=== PATIENT | female | born 1935 | race Caucasian/White ===

== ENCOUNTER 2016-10-05 08:56 | Inpatient (IN) | payer OTHER ==
[~2016-10-05] VITALS: Ht 152.4 cm; Wt 59.4 kg
[2016-10-05 10:05] LABS: BASOPHIL % 0.3 % (0-2); PLATELET COUNT 380 x10^3mcL (130-400)
[2016-10-05 10:40] LABS: CALCIUM 9.1 mg/dL (8.5-10.1); CARBON DIOXIDE 29.7 mmol/L (21-32); CHLORIDE SERUM 102 mmol/L (98-107); CREATININE SERUM 0.8 mg/dL (0.6-1.0); GLUCOSE SERUM 107 mg/dL (74-106); POTASSIUM SERUM 3.6 mmol/L (3.5-5.1); SODIUM SERUM 138 mmol/L (136-145)
[2016-10-05 10:41] LABS: CK-MB < 0.5 ng/mL (0-3.6); CREATINE KINASE 67 U/L (26-192); FREE T4 1.05 ng/dL (0.76-1.46); FREE THYROXINE INDEX 2.7 ug/dL (1.4-4.5); T4(THYROXINE) 7.9 ug/dL (4.7-13.3)
[2016-10-05 10:42] LABS: T3 TOTAL 1.05 ng/mL
[2016-10-05 10:46] LABS: microscopic required? YES; urine erythrocyte TRACE (NEGATIVE)
[2016-10-05 10:52] LABS: ALBUMIN 3.6 g/dL (3.4-5.0); ALKALINE PHOSPHATASE 103 U/L (46-116); ALT/SGPT 6 U/L (14-59); AST/SGOT 21 U/L (15-37); BILIRUBIN TOTAL 0.61 mg/dL (0.20-1.00); C REACTIVE PROTEIN 3.8 mg/dL (<=0.9); TOTAL PROTEIN, SERUM 7.9 g/dL (6.4-8.2)
[2016-10-05] MEDS ORDERED: ZYPREXA5 M1 PO (11:02)
[2016-10-05] MEDS ORDERED: NOR5 PO (11:03)
[2016-10-05] MEDS ORDERED: XANAX0.25 MG PO (11:03)
[2016-10-05] MEDS ORDERED: COLACE100 MG PO (11:04)
[2016-10-05 11:45] LABS: ERYTHROCYTE SED RATE 63 mm/hr (0-30)
[2016-10-05 21:36] VITALS: BP 161/82
[2016-10-06 06:03] VITALS: BP 139/50
[2016-10-06 07:32] LABS: BASOPHIL % 0.1 % (0-2); PLATELET COUNT 351 x10^3mcL (130-400); RED CELL DISTRIBUTION WIDTH 13.9 % (11.5-14.5)
[2016-10-06 07:46] LABS: CALCIUM 8.2 mg/dL (8.5-10.1); CARBON DIOXIDE 25.4 mmol/L (21-32); CHLORIDE SERUM 104 mmol/L (98-107); CREATININE SERUM 0.7 mg/dL (0.6-1.0); GLUCOSE SERUM 105 mg/dL (74-106); POTASSIUM SERUM 3.3 mmol/L (3.5-5.1); SODIUM SERUM 138 mmol/L (136-145)
[2016-10-06 07:57] LABS: PHOSPHOROUS 3.6 mg/dL (2.5-4.9)
[2016-10-06 13:49] VITALS: BP 111/45
[2016-10-06 14:59] VITALS: Ht 152.4 cm; Wt 59.4 kg
[2016-10-06 17:25] VITALS: BP 132/60
[2016-10-06 20:36] VITALS: BP 119/55
[2016-10-07 05:53] VITALS: BP 137/70
[2016-10-07 08:40] LABS: BASOPHIL % 0.2 % (0-2); PLATELET COUNT 387 x10^3mcL (130-400); RED CELL DISTRIBUTION WIDTH 13.6 % (11.5-14.5)
[2016-10-07 08:46] LABS: CALCIUM 8.5 mg/dL (8.5-10.1); CHLORIDE SERUM 105 mmol/L (98-107); CREATININE SERUM 0.7 mg/dL (0.6-1.0); GLUCOSE SERUM 93 mg/dL (74-106); PHOSPHOROUS 2.9 mg/dL (2.5-4.9); POTASSIUM SERUM 3.8 mmol/L (3.5-5.1); SODIUM SERUM 139 mmol/L (136-145)
[2016-10-07 09:57] VITALS: BP 139/61
[2016-10-07 17:47] VITALS: BP 147/64
[2016-10-07 21:17] VITALS: BP 121/61
[2016-10-08 06:18] LABS: BASOPHIL % 0.6 % (0-2); RED CELL DISTRIBUTION WIDTH 13.7 % (11.5-14.5)
[2016-10-08 06:26] VITALS: BP 146/68
[2016-10-08 06:47] LABS: PLATELET COUNT 403 x10^3mcL (130-400)
[2016-10-08 07:00] LABS: CARBON DIOXIDE 24.1 mmol/L (21-32); CHLORIDE SERUM 103 mmol/L (98-107); CREATININE SERUM 0.6 mg/dL (0.6-1.0); GLUCOSE SERUM 98 mg/dL (74-106); MAGNESIUM 2.2 mg/dL (1.8-2.4); PHOSPHOROUS 2.5 mg/dL (2.5-4.9); POTASSIUM SERUM 3.4 mmol/L (3.5-5.1); SODIUM SERUM 140 mmol/L (136-145)
[2016-10-08 08:45] VITALS: BP 158/72
[2016-10-08 22:00] VITALS: BP 121/53
[2016-10-09 05:54] VITALS: BP 147/68
[2016-10-09 07:06] LABS: CALCIUM 8.7 mg/dL (8.5-10.1); CARBON DIOXIDE 25.8 mmol/L (21-32); CHLORIDE SERUM 105 mmol/L (98-107); CREATININE SERUM 0.6 mg/dL (0.6-1.0); GLUCOSE SERUM 95 mg/dL (74-106); POTASSIUM SERUM 3.4 mmol/L (3.5-5.1); SODIUM SERUM 141 mmol/L (136-145)
[2016-10-09 07:07] LABS: BASOPHIL % 0.3 % (0-2); PLATELET COUNT 394 x10^3mcL (130-400); RED CELL DISTRIBUTION WIDTH 13.8 % (11.5-14.5)
[2016-10-09 07:44] VITALS: BP 133/67
[2016-10-09 09:14] VITALS: BP 133/52
[2016-10-09] MEDS ORDERED: CLEOCIN PH600 MG/4 M IV (16:54)
[2016-10-09 17:31] VITALS: BP 133/54
[2016-10-09 18:08] VITALS: BP 133/54
== END 2016-10-09 19:18 | DRG 602 ==
LOC: ED 08:56 → DU 12:29 → MU 12:29 → DU 21:10 → MU 10-07 11:58
PROVIDERS: Specialist; ADMIT Family Medicine
DX: L03.116 Cellulitis of left lower limb (principal); N17.0 Acute kidney failure with tubular necrosis; G93.41 Metabolic encephalopathy; G30.9 Alzheimer's disease, unspecified; F02.80 Dementia in other diseases classified elsewhere, unspecified severity, without behavioral disturbance, psychotic disturbance, mood disturbance, and anxiety; N31.9 Neuromuscular dysfunction of bladder, unspecified; E87.6 Hypokalemia; I10 Essential (primary) hypertension; Z68.24 Body mass index [BMI] 24.0-24.9, adult; Z66 Do not resuscitate; Z51.5 Encounter for palliative care
CPT/HCPCS: 36600; 83880; 84439; 97110-GP; 97116-GP; 97530-GP; J0696; J2060; J3490; J7030; Q0092

== ENCOUNTER 2019-03-31 08:08 | Inpatient (IN) | payer OTHER ==
[~2019-03-31] VITALS: Ht 152.4 cm; Wt 68.0 kg
[~2019-03-31 08:08] MED LIST: CLEOCIN PH600 MG/4 M IV; COLACE100 MG PO; NOR5 PO; XANAX0.25 MG PO; ZYPREXA5 M1 PO
--- NOTE | 2019-03-31 08:13 | NUR ---
MSE COMPLETED BY DR UMANA. PT JUAN CARLOS FROM [place] FOR POSS SEIZURE TONIC CLONIC LIKE ACTIVITY ON THE COUCH. PER MEDIC STAFF STATED PT APPEARS TO BE MORE ALTERED THAN USUAL. PT IS NORMALLY NONVERBAL AND HAS A ALTE STAGE HX OF DEMENTIA
[2019-03-31 08:28] VITALS: Ht 152.4 cm; Wt 68.0 kg
--- NOTE | 2019-03-31 08:30 | NUR ---
RT AT BEDSIDE. LAB AT BEDSIDE
[2019-03-31 09:04] LABS: BASOPHIL % 0.2 % (0-2); PLATELET COUNT 375 x10^3mcL (130-400)
[2019-03-31 09:05] LABS: RED CELL DISTRIBUTION WIDTH 15.6 % (11.5-14.5)
--- NOTE | 2019-03-31 09:06 | NUR ---
PT RETURNED FROM RADIOLOGY. PLACED BACK ON FULL MONITORS. DR UMANA AWARE OF LOW TEMP. INSTRUCTED TO PLACE RECTAL BEAR HUGGER PROBE INSIDE TO CHECK TEMPERATURE TO ASCERTAIN LOW TEMP. PROBE PLACED INSIDE.
[2019-03-31 09:21] LABS: UA SPECIFIC GRAVITY 1.015 (1.005-1.035); microscopic required? YES; urine erythrocyte NEGATIVE (NEGATIVE)
--- NOTE | 2019-03-31 09:30 | NUR ---
PLACED ON BEAR HUGGER FOR LOW TEMP. RECTAL PROBE THERMOMETER READING 91.9. F. DR UMANA AWARE.
[2019-03-31 09:44] LABS: T3 TOTAL 1.26 ng/mL
[2019-03-31 09:49] LABS: CALCIUM 9.4 mg/dL (8.5-10.1); CHLORIDE SERUM 112 mmol/L (98-107); CREATININE SERUM 0.8 mg/dL (0.6-1.0); GLUCOSE SERUM 128 mg/dL (74-106); POTASSIUM SERUM 3.9 mmol/L (3.5-5.1); SODIUM SERUM 149 mmol/L (136-145)
[2019-03-31 10:03] LABS: ALKALINE PHOSPHATASE 130 U/L (46-116); ALT/SGPT 38 U/L (14-59); AST/SGOT 34 U/L (15-37); TOTAL PROTEIN, SERUM 8.1 g/dL (6.4-8.2)
[2019-03-31 10:04] LABS: ALBUMIN 3.1 g/dL (3.4-5.0)
[2019-03-31 10:10] LABS: FREE T4 1.27 ng/dL (0.76-1.46); FREE THYROXINE INDEX 3.8 ug/dL (1.4-4.5); T4(THYROXINE) 10.6 ug/dL (4.7-13.3)
[2019-03-31 10:11] LABS: C REACTIVE PROTEIN 4.3 mg/dL (<=0.9)
[2019-03-31 10:19] LABS: CK-MB 3.2 ng/mL (0-3.6)
--- NOTE | 2019-03-31 10:35 | NUR ---
RETURNED FROM CT SCAN FOR CT ANGIO TEST. PLACED BACK ON BLANKET WARMER. PT TEMP 92.2 FAHRENHEIT AT THIS TIME
--- NOTE | 2019-03-31 11:09 | NUR ---
DR UMANA AT BEDSIDE FOR RE EVAL
[2019-03-31 11:52] LABS: ERYTHROCYTE SED RATE 50 mm/hr (0-30)
--- NOTE | 2019-03-31 12:02 | NUR ---
INFUSING THE 150ML NS PER HOUR WIDE OPEN D/T LOW BP PER DR LYNDSAY ORTIZ.
--- NOTE | 2019-03-31 12:12 | NUR ---
HOLD PT IN ED AT THIS TIME FOR POWER OF PROCESSOR GRAIN TO ARRIVA. PER AREA INTELLIGENCE TECHNICIAN LEI FROM [facility], THE POWER OF PROCESSOR GRAIN WILL BE HERE
--- NOTE | 2019-03-31 13:14 | NUR ---
DR UMANA SPEAKING TO HOSPICE REP IMMANUEL REGARDING PT ADMISSION AND STATUS. PER REP, FAMILY WANTS PT BACK IN HOSPICE.
--- NOTE | 2019-03-31 13:33 | NUR ---
CALLED FOR REPORT EXT [phone]- NO ANSWER.
--- NOTE | 2019-03-31 13:48 | NUR ---
REPORT GIVEN TAYA
[2019-03-31 14:46] VITALS: BP 111/76
--- NOTE | 2019-03-31 15:05 | NUR ---
RECEIVED PT FROM ER, PT IS EYE OPEN BUT NON VERBAL, ONLY RESPONSIVE TO PAIN. LUNG SOUND RHONCHI ADAM. CONSTANTLY MAKE GASPING SOUND WHILE BREATHING. PT IS ON 2L/MIN O2 VIA NC. PO2 96%, PT IS ON TELE 27, FIRST DEGREE AV BLOCK, NO S/S OF CHEST PAIN, BOWEL SOUND PRESENT ALL 4 QUADRANTS, NO DISTENTION, NO TENDER. PEDAL PULSE PRESENT BOTH FEET, +1 EDEMA BLE. IV AT LEFT HAND, LEFT AC, AND RIGHT FA, DRESSING INTACT. AT 1430 PT HAD 30 SECOND TONIC-CLONIC SEIZURE, ATIVAN IVP WAS GIVEN. PT IS FALLING TO SLEEP AFTER SEIZURE. PT IS ON BEAR HUG MACHINE FOR TEMPTURE CONTROL. AIR MATTRESS IS IN PLACE. ALL ADLS ASSIST, ALL NEED MET, CALL LIGHT IN REACH, WILL CONTINUE TO MONITOR.
--- NOTE | 2019-03-31 15:26 | NUR ---
PATIENT HAD A 30 SECOND SEIZURE. ATIVAN 0.5 MG IVP WAS GIVEN AT 1435. AT 1505 SHE STILL HASNT HAD ANY MORE SEIZURES, SHE IS SLEEPING WITHOUT DIFFICULTY BREATHING. O2 100% NON REBREATHER MASK. IV SITE LEFT HAND AND LAC PATENT,CDI. NEW IV SITE TO RFA 22 DANIEL.
--- NOTE | 2019-03-31 15:34 | NUR ---
SEIZURE PRECAUTIONS, BED WAS PADDED BEFORE ARRIVAL FROM ED. JESUSITA BAUERGGDREW WITH RECTAL PROBE IS IN PATIENT, HER RECTAL TEMP IS NOW 96.2. SHE DIVINE 100% NRB MASK.
--- NOTE | 2019-03-31 16:41 | NUR ---
BP 85/28, HR 80. I NOTIFIED [facility] SKIN CARE INSTRUCTOR, SHE ORDERED 500 ML NS BOLUS TO BE GIVEN.
--- NOTE | 2019-03-31 17:55 | NUR ---
NON VERBAL, TRACKS OCCASIONALLY WITH EYES. DOES NOT FOLLOW COMMANDS. NON VERBAL. IV SITE LEFT HAND PATENT,CDI. WITH BEAR HUGGER BLANKET AND RECTAL TEMP PROBE, TEMP 98.5 NOW. NO SIGNS OF DISCOMFORT. NO FAMILY HAS CALLED OR VISITED. TELE # 4 SR WITH BBB.
--- NOTE | 2019-03-31 18:25 | NUR ---
BOLUS OF 500 CC NS WAS GIVEN AT 1630 FOR A BP OF 85/28, COMPLETED AT 1825. BP IS NOW 94/29, HR 77.
[2019-03-31 18:26] VITALS: BP 94/29
--- NOTE | 2019-03-31 20:00 | NUR ---
PT A/A/O X4, AT BEDSIDE. PT DENIES DIZZINESS AND HEADACHE. BREATH SOUNDS CLEAR. BREATHING EVEN AND UNLABORED. DENIES CHEST PAIN AND PRESSURE. BOWEL SOUNDS ACTIVE. ABDOMEN DISTENDED AND SOFT. NO C/O N/V AND ABD PAIN. BAND AID ON THE ABDOMEN NOTED INTACT. PITTING EDEMA NOTED ON BLE EXTENDING TO THE PENILE AREA. SKIN TEAR WITH DRESSING ON THE LEFT FOREARM C/D/I. IV INTACT ON THE RIGHT HAND AND RIGHT FOREARM. MADE PT COMFORTABLE. PLACED CALL LIGHT WITH IN REACH. WILL CONTINUE TO MONITOR.
--- NOTE | 2019-03-31 20:00 | NUR ---
PT WITH EYES OPEN. REPONDS TO PAIN STIMULI. BREATH SOUNDS CLEAR. BREATHING EVEN AND UNLABORED ON 5L NC, SPO2 97%. BOWEL SOUNDS ACTIVE. RASH NOTED ON THE UNDERSIDE OF THE BREAST KIMBERLY. TRACE EDEMA NOTED ON BLE. IV INTACT ON THE LEFT HAND INFUSING WITH NS AT 70 ML/HR. IV SALINE LOCK NOTED ON RIGHT FORE ARM. MADE PT COMFORTABLE. PLACED CALL LIGHT WITH IN REACH. SEIZURE PRECAUTION OBSERVED. PT ON AIR MATTRESS. PT ON BEAR HUGGER WITH TEMPORAL TEMPERATURE OF 98.8. WILL CONTINUE TO MONITOR.
[2019-03-31 21:02] VITALS: BP 122/61
--- NOTE | 2019-04-01 00:54 | NUR ---
PT RESTING WITH EYES CLOSED. NO DISTRESS AND DISCOMFORT NOTED. WILL CONTINUE TO MONITOR.
[2019-04-01 05:44] VITALS: BP 100/28
[2019-04-01 06:28] LABS: PLATELET COUNT 348 x10^3mcL (130-400)
--- NOTE | 2019-04-01 06:30 | NUR ---
PT QUIET AND RESTING. NO SIGNIFICANT CHANGES NOTED. IV INTACT AND INFUSING ORDERED. MADE PT COMFORTABLE. WILL ENDORSE TO THE AM NURSE ACCORDINGLY.
[2019-04-01 07:10] LABS: CALCIUM 8.6 mg/dL (8.5-10.1); CHLORIDE SERUM 113 mmol/L (98-107); GLUCOSE SERUM 73 mg/dL (74-106); SODIUM SERUM 148 mmol/L (136-145)
--- NOTE | 2019-04-01 07:15 | NUR ---
RECEIVED PT FROM NIGHT NURSE. PT IS LAYING DOWN IN BED WITH HOB UP AND EYES CLOSED. PT IS RESPONSIVE TO PAINFUL STIMULI AND DOES NOT FOLLOW COMMANDS. RESPIRATIONS EVEN AND UNLABORED ON 5L NC. TELE MONITOR PRESENT. IV SITE PATENT WITH NO SIGNS OF ERYTHEMA OR SWELLING. RUTH HUGGER PRESENT, CURRENT TEMPERATURE IS 98.4. IV SITE PATENT WITH NO SIGNS OF ERYTHEMA OR SWELLING WITH IV FLUIDS INFUSING. CALL LIGHT WITHIN REACH, BED IN LOWEST POSITION, WILL CONTINUE TO MONITOR.
[2019-04-01 07:56] LABS: BASOPHIL % 0 % (0-2); RED CELL DISTRIBUTION WIDTH 15.9 % (11.5-14.5)
[2019-04-01 08:32] VITALS: BP 95/32
--- NOTE | 2019-04-01 09:15 | NUR ---
PT HAD EPISODE OF INCONTINENCE, CLEANED UP PT AND CHANGED CHUCKS AND PT'S GOWN. REPOSITIONED PT. CALL LIGHT WTIHIN REACH. WILL CONITNUE TO MONITOR.
--- NOTE | 2019-04-01 10:30 | NUR ---
PT IS ITCHING SKIN AND PULLING AT TELE MONITOR. APPLIED LOTION TO AREAS OF ITCHING WITH DRY SKIN AND PT WOULD STOP ITCHING. REORIENTED PT TO PLACE AND INFORMED PT OF THE NEED FOR TELE MONITOR. WILL CONTINUE TO MONITOR
--- NOTE | 2019-04-01 10:50 | NUR ---
NOTIFIED MEGAN MCCARTHY OF PT'S BLOOD PRESSURE LOW 95/32
--- NOTE | 2019-04-01 11:04 | NUR ---
Bedside swallow evakuation completed. Pt is alert and limited participation despite max assistance. Limited swallow evaluation due to reduced pt's participation. Pt tolerated moist Puree diet and Honey thick liquids. No other trials provided due to risk for aspiration. Strict aspiration precautions- Upright position, provide small bites/sips, allow extra time to swallow and cue pt to swallow. No straw. Provide Moist Puree diet and Honey thick liquids. Informed RITA Fields. No further ST follow up indicated due to pt could not follow directions for therapy. Refer to ACTIVITY THERAPY SPECIALIST to re-screen/ re-eval if any swalllowing concern arises later.
--- NOTE | 2019-04-01 11:23 | NUR ---
PT IS LAYING DOWN IN BED WITH HOB UP RESTING WITH EYES CLOSED. PT LOOKS TO BE IN NO ACUTE DISTRESS AT THIS TIME. WILL CONTINUE TO MONITOR.
--- NOTE | 2019-04-01 12:15 | NUR ---
PT TEMPERATURE 99.2 RECTAL. TURNED OFF RUTH HUGGER AND TURNED OFF ROOM HEATER. PT LOOKS TO BE IN NO ACUTE DISTRESS AT THIS TIME. WILL CONTINUE TO MONITOR PT
--- NOTE | 2019-04-01 13:30 | NUR ---
PT AWAKE AND IS LAYING DOWN IN BED WITH HOB UP. ATTEMPTED TO FEED PT, PT REFUSED TO OPEN MOUTH DESPITE ASSISTANCE. PT IS LAYING LAYING DOWN WITH EYES CLOSED. PT LOOKS TO BE IN NO ACUTE DISTRESS AT THIS TIME. WILL CONTINUE TO MONITOR
[2019-04-01 13:35] VITALS: BP 109/41
--- NOTE | 2019-04-01 16:12 | NUR ---
PT HAD AN EPISODE OF INCONTINENCE. CLEANED UP PT AND CHANGED CHUCKS. REPOSITIONED PT, MADE PT COMFORTABLE IN BED. WILL CONTINUE TO MONITOR.
[2019-04-01 16:47] VITALS: BP 139/61
--- NOTE | 2019-04-01 17:58 | NUR ---
ASSISTED PT WITH EATING. PT ABLE TO TAKE SMALL BITES. PT ATE APPROXIMATELY 50% OF DINNER. TURNED AND REPSOITIONED PT AND MADE PT COMFORTABLE IN BED. WILL CONTINUE TO MONITOR.
--- NOTE | 2019-04-01 18:18 | NUR ---
PT IS LAYING DOWN IN BED WITH HOB UP RESTING WITH EYES CLOSED. PT LOOKS TO BE IN NO ACUTE DISTRESS AT THIS TIME AND LOOKS TO BE IN NO PAIN. RESPIRATIONS EVEN AND UNLABORED ON 4L NC. PT ON AIR MATTRESS. RUTH MASON PRESENT BUT OFF AT THIS TIME, PT TEMP 98.5. IV SITE PATENT WITH NO SIGNS OF ERYTHEMA OR SWELLING. IV TO RIGHT FOREARM INFUSING, LAC S/L. PT RESPONSIVE TO VERBAL STIMULI. PT SPEAKS SINGLE WORDS RANDOMLY AT TIMES WHEN AWAKE. BED IN LOWEST POSITION, CALL LIGHT WITHIN REACH. WILL ENDORSE TO ONCOMING SHIFT.
--- NOTE | 2019-04-01 19:30 | NUR ---
PT RECIEVED FROM DAY NURSE. PT RESTING IN BED AT THIS TIME. A/OX0, RESPONDS TO PAINFUL STIMULI. PT ON SEZIURE PRECAUTIONS. TELE 27, NSR W 1ST DEGREE AV BLOCK.NO S/S OF CP, NV, DIZZINESS, OR PALPATATIONS AT THIS TIME. PALPABLE PULSES, TRACE EDEMA NOTED TO BLE. BREATHING E/U ON 4L NC AT THIS TIME. NO S/S OF SOB NOTED. ABD SOFT AND ROUND AT THIS TIME, LAST BM UNKNOWN. PT INCONTINENT, CLEANING NEEDED. GENERALIZED WEAKNESS, PT ON AIR MATTRESS, RUTH HUGGER IN PLACE, PT TEMP 97.2 AT THIS TIME. RASH NOTED ADAM BREAST, COVERED WITH INTERDRY. IV TO LAC AND RFA, INTACT AND INFUSING. BED AT LOWEST POSITION. CALL LIGHT WITHIN REACH. WILL CONTINUE TO MONITOR.
[2019-04-01 20:45] VITALS: BP 119/45
--- NOTE | 2019-04-02 01:00 | NUR ---
IV TO RAC INFILTRATED. IV TO L WRIST PLACED.
[2019-04-02 05:50] VITALS: BP 122/56
--- NOTE | 2019-04-02 06:16 | NUR ---
PT REMOVED IV TO L WRIST AT THIS TIME. IV TO LAC STILL INTACT AND INFUSING. PT RESTING IN BED, NO S/S OF PAIN OR DISCOMFORT NOTED. PT RESPONDING TO SOME VERBAL STIMULI, PT IS NOT MAKING SENSE. PT BREATHING E/U ON 4L NC. BED AT LOWEST POSITION. CALL LIGHT WITHIN REACH. WILL CONTINUE TO MONITOR.
[2019-04-02 06:32] LABS: BASOPHIL % 0.2 % (0-2); PLATELET COUNT 300 x10^3mcL (130-400)
[2019-04-02 06:34] LABS: CALCIUM 8.3 mg/dL (8.5-10.1); CARBON DIOXIDE 28.5 mmol/L (21-32); CHLORIDE SERUM 114 mmol/L (98-107); CREATININE SERUM 0.8 mg/dL (0.6-1.0); GLUCOSE SERUM 81 mg/dL (74-106); POTASSIUM SERUM 3.6 mmol/L (3.5-5.1); SODIUM SERUM 149 mmol/L (136-145)
--- NOTE | 2019-04-02 07:10 | NUR ---
RECEIVED PT FROM NIGHT NURSE. PT IS LAYING DOWN IN BED WITH HOB UP RESTING. PT LOOKS TO BE IN NO ACUTE DISTRESS AT THIS TIME AND LOOKS TO BE IN NO PAIN. RESPIRATIONS EVEN AND UNLABORED ON 4L NC. TELE MONITOR PRESENT. PT ON RUTH HUGGER AND TEMP IS 96.7. IV SITE PATENT WITH NO SIGNS OF ERYTHEMA OR SWELLING. PT ON AIR MATTRESS. CALL LIGHT WITHIN REACH, BED IN LOWEST POSITION. WILL CONITNUE TO MONITOR.
[2019-04-02 08:03] VITALS: BP 135/54
--- NOTE | 2019-04-02 08:40 | NUR ---
PT. SEEN FOR LOW SHARAD SCALE AT RISK, SKIN INTACT, GENERNALIZES SKIN RASHES ALL OVER BODY, UPPER ARMS/ HANDS MULTIPLE ECCHYMOSIS AND BRUISES POSSIBLE FROM IV AND BLOOD DRAW, UNDER BREASTS FOLD RED WIH DRY SCABS, INTERDRY CLOTH PLACED CONTINUE PRESSURE ULCER PREVENTION INTERVENTIONS: -TURN AND REPOSITION PATIENT Q 2H OFFLOAD LEFT AND RIGHT HIPS -ASSESS AND MONITOR SKIN CONDITION DURING POSITION CHANGE -OFFLOAD BILATERAL HEELS BY PLACING PILLOWS UNDER CALVES AT ALL TIMES, UNLESS OTHERWISE CONTRAINDICATED -PRESSURE REDISTRIBUTION SURFACE THERAPY WITH PILLOWS/WEDGE POSITIONER -KEEP SKIN CLEAN AND DRY AT ALL TIMES. -INTERTRIGO TO BILATERAL BREASTS FOLD, APPLY INTERDRY CLOTH CHANGE Q7DAYS AND PRN IF SOILING.
[2019-04-02] MEDS ORDERED: DOXYCYCLINE HY100 MG PO (10:03)
[2019-04-02] MEDS ORDERED: DOXYCYCLINE HY100 M2 PO (10:04)
--- NOTE | 2019-04-02 10:30 | NUR ---
ASSISTED PT WITH EATING. PT MORE AWAKE AND STARTED SPEAKING IN SHORT SENTENCES. PT VOICED THE FOODS THAT SHE LIKED. PT ABLE TO STATE NAME, WHEN ASKED , PT JUST LAUGHED. PT UNABLE TO VOICE YEAR OR WHERE SHE IS. WHEN ASKED WHERE SHE LIVES, PT RESPONDED, "[place]." PT LAYING DOWN IN BED WITH HOB UP. WILL CONTINUE TO MONITOR.
--- NOTE | 2019-04-02 11:20 | NUR ---
GAVE PT A BED BATH, PT SPEAKING MORE AT THIS TIME AND SPEECH IS CLEAR. PT ASKING IF IT IS RAINING, INFORMED PT OF THE WEATHER AND OPENED UP WINDOW, PT ASKED FOR WINDOW TO BE CLOSED SINCE IT IS BRIGHT. ASKED PT IF SHE KNEW HER AGE AND PT RESPONDED, 24 AND LAUGHED. PT UNABLE TO STATES OR CURRENT YEAR. PT STARTED TALKING ABOUT . AFTER BEDSIDE APPLIED LOTION TO SKIN SINCE SKIN DRY. MADE PT COMFORTABLE IN BED, CALL LIGHT WITHIN REACH. WILL CONTINUE TO MONITOR.
--- NOTE | 2019-04-02 13:00 | NUR ---
PT SITTING UP IN BED AND TRYING TO GET OUT OF BED, PT ASKING HOW SHE CAN GET OUT OF BED. INFORMED PT THAT SHE NEEDS TO STAY IN BED AT THIS TIME. ASSISTED PT TO LAY DOWN AND COVERED WITH BLANKETS. PT NOW BACK IN BED LAYING DOWN. BED ALARM ON, WILL CONTINUE TO MONITOR.
[2019-04-02 13:09] VITALS: BP 106/42
--- NOTE | 2019-04-02 14:23 | NUR ---
PT SITTING UP AND TRYING TO GET OUT OF BED. INFORMED PT TO STAY IN BED. MADE PT COMFORTABLE IN BED. BED ALARM ON, WILL CONTINUE TO MONITOR.
--- NOTE | 2019-04-02 14:50 | NUR ---
PT TRYING TO GET OUT OF BED. PT ASKING FOR THE SIDE RAIL TO BE LOWERED TO BE ABLE TO GET OUT OF BED. PT STATING THAT SHE NEEDS TO LEAVE AND CALL THE DR. WHEN ASKING THE PT WHAT SHE NEEDS TO CALL THE DR. FOR, PT STATES, I NEED TO LEAVE. REORIENTED PT TO PLACE AND REASON FOR HOSPTIALIZATION. ASSISTED PT TO LAYING DOWN AGAIN. WILL MEDICATE ACCORDING TO EMAR. BED ALARM ON
--- NOTE | 2019-04-02 15:04 | NUR ---
MEDICATED PT WITH ATIVAN. PT IS NOW LAYING DOWN IN BED WITH HOB UP WATCHING TV. PT LOOKS TO BE IN NO ACUTE DISTRESS AT THIS TIME. BED ALARM ON, WILL CONTINUE TO MONITOR.
[2019-04-02 16:10] VITALS: BP 106/42
[2019-04-02 16:56] VITALS: BP 104/51
--- NOTE | 2019-04-02 17:30 | NUR ---
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 WILL NOTIFY MEGAN HALL. CONTACT PRECAUTIONS IMPLEMENTED.
--- NOTE | 2019-04-02 17:45 | NUR ---
[facility] NURSE ARRIVED. GAVE HOSPICE NURSE PT UPDATE.
--- NOTE | 2019-04-02 17:55 | NUR ---
MEGAN MCCARTHY NOTIFIED
--- NOTE | 2019-04-02 18:36 | NUR ---
PT IS SITTING UP IN BED. PT LOOKS TO BE IN NO ACUTE DISTRESS AT THIS TIME AND DENIES ANY PAIN. RESPIRATIONS EVEN AND UNLABORED ON 4L NC. IV SITE PATENT WITH NO SIGNS OF ERYTHEMA OR SWELLING WITH IV FLUIDS INFUSING. TELE MONITOR PRESENT. CALL LIGHT WITHIN REACH. HOSPICE NURSE INFORMED THAT TRANSPORT TEAM WILL ARRIVE BETWEEN [phone] 04/02/19. WILL ENDORSE TO ONCOMING SHIFT.
--- NOTE | 2019-04-02 18:57 | NUR ---
DECREASED PT'S O2 TO 1L AND ON CONTINUOUS PULSE OX. PT SATTING AT 97% AT THIS TIME.
--- NOTE | 2019-04-02 19:05 | NUR ---
TRANSPORT TEAM ARRIVED. GAVE REPORT TO TRANSPORT TEAM. REMOVED IV AND RECTAL TEMP. IV CATHETER FULLY INTACT. PROVIDED TRANSPORT TEAM WITH DISCHARGE EDUCATION AND PRESCRIPTION WELL DNR STATUS FORM. PT DISORIENTED AND CONFUSED AN UNABLE TO SIGN FOR SELF. PT IS AWAKE AND ALERT, ORIENTED TO SELF AT TIME OF DISCHARGE. PT BELONINGS WITH TRANSPORT TEAM. TELE REMOVED AND RETURNED TO TELE STATION.
== END 2019-04-02 19:39 | disposition hospice, home (50) | DRG 177 ==
LOC: ED 08:08 → DU 11:34
PROVIDERS: Specialist; ADMIT Internal Medicine
DX: J69.0 Pneumonitis due to inhalation of food and vomit (principal); J96.01 Acute respiratory failure with hypoxia; G93.41 Metabolic encephalopathy; E87.0 Hyperosmolality and hypernatremia; E86.0 Dehydration; R68.0 Hypothermia, not associated with low environmental temperature; F03.90 Unspecified dementia, unspecified severity, without behavioral disturbance, psychotic disturbance, mood disturbance, and anxiety; Z68.26 Body mass index [BMI] 26.0-26.9, adult; Z66 Do not resuscitate
CPT/HCPCS: 36600; 82962; 84439; 87804; 92610-GN; C9113; G0378; J1956; J2060; J2543; J7030; J7040; Q0092; Q9967